=== PATIENT | female | born 1945 | race Caucasian/White ===

== ENCOUNTER 2025-01-02 18:12 | Emergency (ER) | payer MEDICARE, MEDICAID, SELFPAY ==
[2025-01-02] VITALS (11 sets, daily range): BP systolic 111–150; BP diastolic 60–81
--- NOTE | 2025-01-02 18:20 | ED.GENMED ---
History of Present Illness
General
Chief Complaint: CVA/TIA Symptoms
Source: family and ambulance crew
Time Seen by Provider: 01/02/25 18:18
History of Present Illness
History of Present Illness:
This patient is an 79-year-old female who presents emergency department via medics. I spoke to munir Reilly before arrival. She describes the patient with an abrupt onset of nausea, vomiting, kind of staring off, and moaning. She was noted to
be hypertensive. Medics suspicion was intracranial bleed. As a result, we called CAT scan to prepare scanner upon patient arrival. Upon her arrival she was brought directly to the CAT scanner. Daughter who is here states that patient was her
usual self earlier today. Then, about 20 minutes or so before medics were called, she started to say that she could not see well associated with severe nausea and difficulty communicating with them. Patient is on a DOAC for A-fib but did not take
her dose this morning.
Past History
Past History
ED Past Medical History: Arrthythmia, HTN and Other (tia, uterine prolapse, dementia, spinal tumors)
Social History
Tobacco: Non-smoker
Alcohol: None
Drug: None
Personal:
Living: with family
Employment: Retired
Phy Exam
Physical Exam
Physical Exam:
GENERAL: Alert , awake, c/o nausea
EYE: pupils equal and reactive , no photophobia, eomi
NECK: Supple, no significant adenopathy.
ENT: o/p clr, mmm.
CARDIAC:Irreg Irreg.
LUNGS: Clear breath sounds bilaterally, no acute respiratory distress, no wheezes/rales/rhonchi
ABDOMEN: Soft, without focal tenderness, no r/g
NEUROLOGICAL: Alert and oriented,maee, uncooper with F to N/heel to turcios, cn 2-12 intact, motor intact, sens intact to light touch
SKIN: Warm and dry, skin intact.
MUSCULOSKELETAL: No edema, well perfused.
PSYCH: Normal and appropriate interaction.
Course
Orders/Labs/Results
Orders:
Orders
01/02/25 18:16
CT HEAD STROKE ALERT W/o Cont Urgent
Comment:
Reason For Exam: stroke alert
01/02/25 18:28
Cardiac Monitoring- Treatment ONCE
Nicardipine 40 mg/200 ml [Cardene] 40 mg in 200 ml IV NOW
Initial dose in mg/hr, then titrate:: 5
Titrate to keep:: Other
Titrate to keep other:: sbp 130-150
Titrate by mg/hr:: 2.5 mg/hr
Frequency of titrations (minutes):: 5-15 minutes
Maximum dose in mg/hr:: 15
Begin to taper infusion when:: Remained at goal for 2hrs
Taper by mg/hr:: 2.5 mg/hr
Frequency of taper (minutes) if patient maintains goal:: 15-30 minutes
Taper to off?: Yes
If infusion off & no longer maintaining goal:: Contact Provider
Pulse Ox/cont/shift [RESP] Stat
Quantity: 1
01/02/25 18:29
Electrocardiogram (*1) Stat
Reason for Study: Other
Other Reason for Exam: neuro symptoms
EKG- Treatment ONCE
01/02/25 18:34
Prothrombin Complex(Pcc),Human [Kcentra] 2,146 unit Empty Viaflex Container 100 ml [Viaflex Empty Container] 0 ml IV NOW
Does patient have a dx of serious acute active bleeding?: Yes
Does patient have prior history of HIT?: No
01/02/25 18:36
Ondansetron Injectable [Zofran] 4 mg .ROUTE .STK-MED ONE
01/02/25 18:37
Ondansetron Injectable [Zofran] 4 mg IV NOW STA
01/02/25 18:42
Complete Blood Count/No Diff Urgent
Comprehensive Metabolic Panel Urgent
PTT Urgent
Prothrombin Time Urgent
01/02/25 18:46
Atropine Sulfate [Atropine 0.1 mg/ml Syringe] 1 mg .ROUTE .STK-MED ONE
Ondansetron Injectable [Zofran] 4 mg .ROUTE .STK-MED ONE
01/02/25 18:47
Mannitol 20% 500 ml [Mannitol 20%] 91.4 gram in 457 ml IV NOW
01/02/25 18:49
Prothrombin Complex(Pcc),Human [Kcentra] 2,146 unit Empty Viaflex Container 100 ml [Viaflex Empty Container] 90 ml IV NOW
Does patient have a dx of serious acute active bleeding?: Yes
Does patient have prior history of HIT?: No
01/02/25 18:52
0.9% Sodium Chloride 500 ml [Nss] 500 ml IV BOLUS
01/02/25 19:01
Phytonadione [Aquamephyton] 5 mg 0.9% Sodium Chloride 50 ml [Nss] 50 ml IV NOW
01/02/25 19:04
Metoclopramide [Reglan] 10 mg IV NOW STA
Ondansetron Injectable [Zofran] 4 mg IV NOW STA
01/02/25 19:05
Metoclopramide [Reglan] 10 mg .ROUTE .STK-MED ONE
Abnormal Lab Results
01/02/25
18:42
MCHC 32.4 L g/dL
(33.0-37.0)
RDW 14.6 H %
(11.5-14.5)
MPV 12.4 H fL
(7.4-10.4)
PT 15.2 H Sec
(11.4-14.6)
Glucose 161 H mg/dl
(70-99)
01/02/25 18:42
01/02/25 18:42
Vital Signs
Initial and Last Documented VS:
Initial Vital Signs
Pulse Resp Pulse Ox
67 20 93
01/02/25 18:29 01/02/25 18:29 01/02/25 18:29
Last Documented Vital Signs
Pulse Resp BP Pulse Ox
65 22 131/75 92
01/02/25 19:40 01/02/25 19:40 01/02/25 19:40 01/02/25 19:40
*Pulse Oximetry
Patient hypoxic: no
*Critical Care Note
Total Time (30-74mins, 75-104mins- exclusive of procedures): 45
Update Note
Update Note:
Patient presents to the Emergency Department with __nausea, visual changes, mental status change
Number and Complexity of Problems Addressed at the Encounter
� Chronic conditions affecting care:
� Acute Exacerbation and/or Progression of Chronic Illness:
� Differential Diagnosis includes: But not limited to TIA, electrolyte disorder, intracranial bleed, ischemic stroke, etc. etc.
Amount and/or Complexity of Data to be Reviewed and Analyzed
� I performed an independent evaluation of and my interpretation is:
EKG:read by me, afib, nl rate, no acute ischemia
CT:Rt cerebellar bleed. 2.5 cm x 1.9 x1.9
Xrays:
Laboratory Studies:generally unremarkable
Other:
� Review of other/old records reveals:
� Clinical information was obtained by an independent historian:daughter, son who are bedside
� Prescriptions/Medications Considered but not given:
� Further testing considered but not performed:
Risk of Complications and/or Morbidity or Mortality of Patient Management
� Social determinants of health affecting care:
� Discussion with other providers (PCP, Hospitalists, Consultants, etc):
� Escalation of care including admission/observation vs risk of discharge considered: I personally spoke with install and repair technician regarding urgency of this CAT scan which is being performed at this time under a 'stroke alert'.
As per Dr. Osborne, cerebellar bleed noted. Family updated, choice is [facility] for transfer we are calling to arrange for this at this time. Kcentra and nicardipine drip ordered.
6:54 PM case discussed with Dr. Gill from [facility], aware of current status, vitals, diagnosis, etc. Agrees with management thus far, recommends a dose of mannitol, 1 g/kg, followed by 1 L of normal saline as well as vitamin K in
addition to the Kcentra and nicardipine drip with goal systolic pressure 130-150 as ordered. We are going to transfer the patient to the NICU, calling for flight now. Family will be updated promptly.
ED Attending Note
-
Portions of this chart may have been created with voice recognition software.� Occasional wrong word or��sound alike� substitutions may have occurred due to the inherent limitations of voice recognition software.
Discharge Plan
Departure
Patient Disposition: Acute Care Hospital
Date of Disposition: 01/02/25
Time of Disposition: 18:53
Condition: Critical
Discharge Problem:
intracerebellar bleed
Instructions: BLOOD PRESSURE
Prescriptions:
No Action
atorvastatin 10 MG tablet
10 mg PO HS
aspirin 325 MG tablet
325 mg PO DAILY
atenolol [Tenormin] 100 MG tablet
100 mg PO DAILY
enalapril maleate [Vasotec] 20 MG tablet
20 mg PO BID
amlodipine 10 MG tablet
10 mg PO DAILY
doxazosin 4 MG tablet
4 mg PO HS
hydrocodone-acetaminophen 1 TABLET tablet
1 tab PO BIDPRN PRN (Reason: pain)
cholecalciferol (vitamin D3) 1,000 UNITS tablet
1,000 units PO DAILY
Hospital Transfer
Other hospital: [facility]
I certify that the patient requires transfer: Yes
Discussed case with accepting physician: Obdulia
Reason for transfer: higher level of care
Interventions
Interventions:
*Risk Screen - Suicide Last Done: 01/02/25 18:40
*General Assessment Last Done: 01/02/25 19:14
*Neglect/Abuse Screening Last Done: 01/02/25 18:27
*ED- Fall Risk Assessment Last Done: 01/02/25 19:14
*ED COVID-19 Vaccine History Last Done: 01/02/25 19:14
*ED Influenza Vaccine History Last Done: 01/02/25 19:14
*Nursing Disposition Last Done: 01/02/25 20:05
ED- Pulmonary Assessment Last Done: 01/02/25 19:20
ED- Neurological Assessment Last Done: 01/02/25 19:23
ED- Cardiac Assessment Last Done: 01/02/25 19:20
ED Swallowing Screen Last Done: 01/02/25 19:24
Discharge Date and Time
Discharge Date/Time: 01/02/25 19:55
Print Language: SRI LANKAN
[2025-01-02] MEDS: CARDENE 200 IV (18:36)
[2025-01-02] MEDS: ZOFRAN 4 MG IV ×2 (18:39→18:55)
[2025-01-02] MEDS: NSS IV (18:55)
[2025-01-02 19:00] LABS: Hematocrit 42.0 % (37.0-47.0); Hemoglobin 13.6 g/dL (12.0-16.0); Mean Corp Hgb Conc. 32.4 g/dL (33.0-37.0); Mean Corpuscular Volume 84.3 fL (81.0-99.0); Platelet Count 177 10^3/uL (130-400); Red Cell Dist. Width 14.6 % (11.5-14.5)
[2025-01-02] MEDS: KCENTRA 90 UNIT IV (19:00)
[2025-01-02] MEDS: MANNITOL 20% 457 IV (19:03)
[2025-01-02] MEDS: REGLAN 10 MG IV (19:05)
[2025-01-02] MEDS: AQUAMEPHYTON 50.5 MG IV (19:08)
[2025-01-02 19:20] LABS: INR 1.15; PT 15.2 Sec (11.4-14.6)
[2025-01-02 19:21] LABS: APTT 28.0 Sec (23.4-35.0)
[2025-01-02 19:36] LABS: ALT (SGPT) 16 U/L (0-35); AST (SGOT) 17 U/L (14-36); Albumin 4.0 g/dl (3.5-5.0); Alkaline Phosphatase 121 U/L (38-126); Blood Urea Nitrogen 16 mg/dl (7-17); Calcium 9.1 mg/dl (8.4-10.2); Carbon Dioxide 28 mmol/L (22-30); Chloride 103 mmol/L (98-107); Estimated Creatinine Clearance 80 ml/min; Glucose 161 mg/dl (70-99); Potassium 3.6 mmol/L (3.5-5.1); Sodium 137 mmol/L (135-145); Total Protein 7.5 g/dl (6.3-8.2); eGFR > 60.00
[2025-01-02] MEDS: NSS 500 IV (19:40)
== END 2025-01-02 19:55 | disposition short-term general hospital (02) ==
LOC: EMR 18:12
PROVIDERS: EMERGENCY PHYSICIAN Emergency Medicine
DX: I61.9 Nontraumatic intracerebral hemorrhage, unspecified (principal); I48.91 Unspecified atrial fibrillation; I10 Essential (primary) hypertension; F03.90 Unspecified dementia, unspecified severity, without behavioral disturbance, psychotic disturbance, mood disturbance, and anxiety; Z86.73 Personal history of transient ischemic attack (TIA), and cerebral infarction without residual deficits
CPT/HCPCS: 99285; 96365; 96367; 96375; 96376; 70450; 80053; 85027; 85610; 85730; 93005; J7168